=== PATIENT | male | born 1985 | race Caucasian/White ===

== ENCOUNTER 2016-10-02 11:12 | Day surgery (SDC) | payer OTHER ==
[~2016-10-02] VITALS: Ht 175.3 cm; Wt 88.5 kg
[2016-10-02] MEDS ORDERED: LR 1,000 ML IV SCH ×3 (12:15→15:00)
[2016-10-02] MEDS ORDERED: dexameTHASONE 4 MG/ML 1ML VIAL (J1100) IV ONE (12:15)
[2016-10-02] MEDS ORDERED: MIDAZOLAM INJ 2 MG/2 ML VIAL (J2250) As Ordered ONE (14:01)
[2016-10-02] MEDS ORDERED: ROCURONIUM BROMIDE 50 MG/5 ML VIAL As Ordered ONE (14:01)
[2016-10-02] MEDS ORDERED: fentaNYL 250 MCG/5 ML INJECTION (J3010) As Ordered ONE (14:01)
[2016-10-02] MEDS ORDERED: ONDANSETRON 4MG/2ML VIAL (J2405) As Ordered ONE (14:01)
[2016-10-02] MEDS ORDERED: LIDOCAINE 2% INJ 100 MG/5 ML SDV (FOR ANES.) As Ordered ONE (14:02)
[2016-10-02] MEDS ORDERED: PROPOFOL 500 MG/50 ML VIAL As Ordered ONE (14:09)
[2016-10-02] MEDS ORDERED: SUCCINYLCHOLINE 100 MG/5 ML SYRINGE (J0330) As Ordered ONE (14:09)
[2016-10-02] MEDS ORDERED: HYDROmorphone HCL 2 MG/ML 1ML VIAL (J1170) As Ordered ONE (14:57)
[2016-10-02] MEDS ORDERED: ONDANSETRON 4MG/2ML VIAL (J2405) IV PRN (15:00)
[2016-10-02] MEDS ORDERED: fentaNYL 100 MCG/2 ML INJECTION (J3010) IV PRN (15:00)
[2016-10-02 17:30] VITALS: BP 141/86
== END 2016-10-02 17:30 | disposition home or self-care (01) ==
LOC: M SDC 11:12
PROVIDERS: ATTEND Otolaryngology
DX: R19.6 Halitosis (principal)
CPT/HCPCS: 42826; 88302; J0330; J1100; J1170; J2250; J2405; J3010

== ENCOUNTER 2016-10-07 13:48 | Emergency (ER) | payer OTHER ==
[~2016-10-07] VITALS: Ht 175.3 cm; Wt 88.5 kg
[2016-10-07 13:48] VITALS: BP 121/66
[2016-10-07] MEDS ORDERED: IBUP-1114 PO (14:04)
[2016-10-07] MEDS ORDERED: HYDROCODON ACETAMIN (14:04)
--- NOTE | 2016-10-07 15:37 | HPE ---
DATE OF ADMISSION: 10/07/2016 The patient is a 30-year-old male who had a tonsillectomy done six days ago. This morning, he developed some problems with bleeding. He bled a little bit all day until I saw him. He has not bled very much. Otherwise, he is healthy. He does complain of a sore throat. Examination today shows there is a blood clot in the right tonsil bed. There is edema and erythema as expected after a tonsillectomy. There is no fresh bleeding. IMPRESSION: The patient has had some postoperative tonsillar bleeding. It has been minimal. I have reassured him in this regard. I have told him to drink cold ice water, ice chips, and see if this settles down. If it does not then he is to return for management. DISCHARGE DIAGNOSIS: Postoperative tonsillar hemorrhage.
== END 2016-10-07 14:46 | disposition home or self-care (01) ==
LOC: M ED 14:27
DX: J95.830 Postprocedural hemorrhage of a respiratory system organ or structure following a respiratory system procedure (principal)